=== PATIENT | female | born 1975 | race Caucasian/White ===

== ENCOUNTER 2023-07-28 12:50 | Outpatient (CLI) | payer BC | END 2023-07-28 12:51 | disposition home or self-care (01) | LOC: SCSMRI 12:50 | PROVIDERS: ATTEND Surgery | DX: M50.20 Other cervical disc displacement, unspecified cervical region (principal); M50.322 Other cervical disc degeneration at C5-C6 level; M25.78 Osteophyte, vertebrae; M48.02 Spinal stenosis, cervical region; M43.12 Spondylolisthesis, cervical region | CPT/HCPCS: 72050; 72141 ==

== ENCOUNTER 2023-09-06 11:41 | Outpatient (CLI) | payer BC ==
[2023-09-06 12:36] LABS: Hematocrit 43.9 % (34.9-44.5); Hemoglobin 14.7 g/dL (12.0-15.5); Mean Corpuscular HGB CONC 33.5 g/dL (32.0-36.0); Mean Corpuscular Hemoglobin 32.1 pg (27.0-33.0); Mean Corpuscular Volume 95.9 fl (81.6-98.3); Mean Platelet Volume 10.4 fl (7.4-10.4); Platelet Count 259 10x3/uL (150-450); RBC Distribution Width 12.8 % (11.5-14.5); Red Blood Cell (RBC) Count 4.58 10x6/uL (3.90-5.03); White Blood Cell (WBC) Count 7.6 10x3/uL (3.5-10.5)
[2023-09-06 13:10] LABS: Anion Gap 16 mmol/L (10-20); BUN (Urea Nitrogen) 13 mg/dL (7.0-18.7); Calc. Creatinine Clearance 0 mL/min (70-130); Calcium 9.7 mg/dL (7.8-10.44); Carbon Dioxide 24 mmol/L (22-29); Chloride 103 mmol/L (98-107); Estimated GFR 82; Glucose 160 mg/dL (70-105); Potassium 4.2 mmol/L (3.5-5.1); Sodium 139 mmol/L (136-145)
[2023-09-06 13:28] LABS: PTT 25.1 sec (22.0-33.0); Prothrombin Time 10.8 sec (9.5-12.1)
== END 2023-09-06 11:42 | disposition home or self-care (01) ==
LOC: LABBT 11:41
PROVIDERS: ATTEND Surgery
DX: Z01.818 Encounter for other preprocedural examination (principal); M50.10 Cervical disc disorder with radiculopathy, unspecified cervical region; M48.02 Spinal stenosis, cervical region
CPT/HCPCS: 80048; 85027; 85610; 85730; 93005; 93010

== ENCOUNTER 2023-09-07 05:46 | Observation (INO) | payer BC ==
[2023-09-07] MEDS ORDERED: HYDROmorphone 0.5 MG/0.5 ML SYRINGE ONE ×3 (06:10→12:26)
[2023-09-07] MEDS ORDERED: Midazolam HCl 2 mg/2 ml Vial ONE (06:10)
[2023-09-07] MEDS ORDERED: fentaNYL PF 100 MCG/2 ML SYRINGE ONE (06:10)
[2023-09-07] MEDS ORDERED: Thrombin 5000 UNITS/5 ML VIAL ONE (06:39)
[2023-09-07] MEDS ORDERED: Sodium Chloride 0.9% 100 ML ONE (07:16)
[2023-09-07] MEDS ORDERED: CEFAZOLIN 2 GM VIAL ONE (07:16)
[2023-09-07] MEDS ORDERED: Ondansetron PF 4 MG/2 ML Vial ONE (07:30)
[2023-09-07] MEDS ORDERED: Rocuronium Bromide 10 MG/ML (10ML VIAL) ONE (07:30)
[2023-09-07] MEDS ORDERED: PROPOFOL 200 MG/20 ML VIAL ONE (07:30)
[2023-09-07] MEDS ORDERED: Dexamethasone 20 MG/5 ML VIAL ONE (07:30)
[2023-09-07] MEDS ORDERED: Lidocaine 1% PF 5 ML VIAL ONE (07:30)
[2023-09-07] MEDS ORDERED: HYDROmorphone 2 MG/ML VIAL ONE (07:53)
[2023-09-07] MEDS ORDERED: SUGAMMADEX SODIUM 200 MG/2 ML VIAL ONE ×2 (09:24→09:44)
[2023-09-07] MEDS ORDERED: Ketorolac Tromethamine 30 MG/ML VIAL IVP PRN (09:25)
[2023-09-07] MEDS ORDERED: HYDROmorphone 2 MG/ML VIAL SLOW IVP PRN (09:25)
[2023-09-07] MEDS ORDERED: Ondansetron HCl/PF 4 MG/2 ML Vial IVP PRN (09:25)
[2023-09-07] MEDS ORDERED: Promethazine HCl 25 MG/ML VIAL IM PRN (09:25)
[2023-09-07] MEDS ORDERED: Meperidine HCl/PF 25 MG/ML VIAL SLOW IVP PRN (09:25)
[2023-09-07] MEDS ORDERED: Acetaminophen 325 MG TAB PO PRN (10:03)
[2023-09-07] MEDS ORDERED: Acetaminophen/Codeine 30-300mg Tablet PO PRN (10:03)
[2023-09-07] MEDS ORDERED: HYDROcodone/Acetaminophen 7.5/325 mg Tablet PO PRN (10:03)
[2023-09-07] MEDS ORDERED: Phenol 177 ML BOT PO PRN (10:07)
[2023-09-07] MEDS ORDERED: Benzocaine/Menthol 1 LOZ LOZ PO PRN (10:07)
[2023-09-07] MEDS ORDERED: tiZANidine HCl 4 MG TAB PO PRN (10:07)
[2023-09-07] MEDS ORDERED: fentaNYL 50 mcg/mL 1 mL Vial ONE ×2 (10:22→10:46)
[2023-09-07] MEDS ORDERED: Insulin Regular 300 UNITS/3 ML VIAL SC PRN ×2 (11:41→17:00)
[2023-09-07 14:49] VITALS: BMI 39.8
[2023-09-07] MEDS ORDERED: FLU VACC QS2023-24(6MOS UP)/PF 60 MCG/0.5 ML SYRINGE IM ONE (15:15)
[2023-09-07] MEDS: Sodium Chloride 0.9% 1,000 ML IV SCH (15:44)
[2023-09-07] MEDS: CEFAZOLIN 2 GM in Sodium Chloride 0.9% 100 ML IVPB SCH (15:47)
[2023-09-07] MEDS: Morphine 2 MG/ML VIAL SLOW IVP PRN ×2 (17:12→20:01)
[2023-09-07] MEDS: Ondansetron PF 4 MG/2 ML Vial IVP PRN (20:01)
[2023-09-07] MEDS: Glimepiride 4 MG TAB PO SCH (21:27)
[2023-09-07] MEDS: traMADol HCl 50 MG TAB PO PRN (22:31)
[2023-09-07] MEDS ORDERED: Ondansetron ODT 8 MG TAB PO SCH (23:59)
[2023-09-08] MEDS: CEFAZOLIN 2 GM in Sodium Chloride 0.9% 100 ML IVPB SCH ×2 (00:31→09:33)
[2023-09-08] MEDS: Sodium Chloride 0.9% 1,000 ML IV SCH (00:32)
[2023-09-08] MEDS: Promethazine HCl 25 MG/ML VIAL IM SCH ×3 (00:33→09:09)
[2023-09-08] MEDS: Ondansetron PF 4 MG/2 ML Vial IVP PRN (02:21)
[2023-09-08] MEDS: traMADol HCl 50 MG TAB PO PRN (06:23)
[2023-09-08] MEDS ORDERED: Pioglitazone HCl 45 MG TAB PO SCH (09:00)
[2023-09-08] MEDS: Glimepiride 4 MG TAB PO SCH (09:08)
[2023-09-08 12:26] VITALS: BP 112/64; TEMP 98
== END 2023-09-08 12:45 | disposition home or self-care (01) ==
LOC: SDC 05:46 → T4-A 14:21
PROVIDERS: ADMIT Surgery; ATTEND Surgery
PROC: 0RG1070 Fusion of Cervical Vertebral Joint with Autologous Tissue Substitute, Anterior Approach, Anterior Column, Open Approach (ICD-10-PCS; principal; 2023-09-07)
DX: M50.122 Cervical disc disorder at C5-C6 level with radiculopathy (principal); M48.02 Spinal stenosis, cervical region; E11.9 Type 2 diabetes mellitus without complications
CPT/HCPCS: 36416; C1713; J1100; J1170; J1815; J2250; J2272; J2405; J2704; J3010; J3490; J7050; Q0162